=== PATIENT | female | born 1990 | race Caucasian/White ===

== ENCOUNTER 2017-02-10 05:57 | Day surgery (SDC) | payer OTHER ==
[2017-02-07 16:24] VITALS: BMI 31.0
[~2017-02-10] VITALS: Ht 162.6 cm; Wt 84.8 kg
[2017-02-10] VITALS (12 sets, daily range): BP systolic 111–136; BP diastolic 68–90; PULSE 77–90; RESP 16–27; Ht 162.6 cm; Wt 84.8 kg
[~2017-02-10 05:57] MED LIST: PNV1TABL43 PO
[2017-02-10] MEDS ORDERED: CEFAZOLIN 2 GM/50 ML (PMX) 50 ML IVPB SCH (06:00)
[2017-02-10] MEDS ORDERED: SOD CHLORIDE 0.9% 1,000 ML IV SCH (06:00)
[2017-02-10] MEDS ORDERED: BUPIVACAINE 0.25% (MPF) 30 ML INJ ONE (06:52)
[2017-02-10] MEDS ORDERED: FENTAnyl 50 MCG/ML VIAL ONE ×2 (07:49→08:43)
[2017-02-10] MEDS ORDERED: MIDAZOLAM 1 MG/ML 2 ML INJ ONE (07:49)
[2017-02-10] MEDS ORDERED: PROPOFOL 20 ML ONE (07:58)
[2017-02-10] MEDS ORDERED: LIDOCAINE 2% (SDV) 5 ML INJ ONE (07:58)
[2017-02-10] MEDS ORDERED: SUCCINYLCHOLINE CHLORIDE 100 MG/5 ML SYG IV ONE (07:58)
[2017-02-10] MEDS ORDERED: CEFAZOLIN 1 GM INJ ONE (07:58)
[2017-02-10] MEDS ORDERED: ROCURONIUM 50 MG INJ ONE (07:58)
[2017-02-10] MEDS ORDERED: DEXAMETHASONE 4 MG/ML 1 ML INJ ONE (08:00)
[2017-02-10] MEDS ORDERED: ONDANSETRON 4 MG INJ ONE (08:00)
[2017-02-10] MEDS ORDERED: METOCLOPRAMIDE 10 MG INJ ONE (08:00)
[2017-02-10] MEDS ORDERED: HYDROmorphONE 2 MG/ML SYG ONE (08:14)
[2017-02-10] MEDS ORDERED: SUGAMMADEX SODIUM 200 MG/2 ML VIAL IV ONE (08:18)
[2017-02-10] MEDS ORDERED: HYDROCODONE/APAP (5/325) TAB PO ONE (08:30)
--- NOTE | 2017-02-10 08:33 | OPR ---
Date/Time of Note Date/Time of Note DATE: 02/10/17 TIME: 08:30 Operative Report Procedure Date: Feb 10, 2017 Preoperative Diagnosis symptomatic gallstones Postoperative Diagnosis same Operation/Procedure Performed 1. laparoscopic cholecystectomy 2. therapeutic injection of subcutaneous local anesthesia Surgeon see signature line Salesforce Developer none Anesthesia Type: general Estimated Blood Loss: 0 - 10 ml's Transfusion none Specimen gallbladder Grafts/Implants none Complications none Pt Condition Post Procedure: stable Indications This is a 18-year-old female with symptomatic gallstones. She requests surgical excision of her gallbladder. Risks alternatives benefits and percent were discussed the patient. Patient expresses understanding consents to the operation. Procedure Description Patient is taken to the OR and prepped and draped in usual sterile fashion. Surgical timeout was performed. IV antibiotics were given. Infraumbilical transverse incision is made with a 15 blade. Dissection cautery was carried onto the fascia. The fascia was divided with curved Lewis scissors. 0 Vicryl U stitch was placed into the fascia. Balloon Almeida trocar is introduced pneumoperitoneum is established. Midepigastric 12 mm optical trocar was placed under direct visualization. Right upper quadrant upper flank 5 mm optical trochars were placed under direct visualization. Upon initial inspection there are some adhesions to the gallbladder. The gallbladder was grasped and retracted in a lateral and our direction. Lateral dissection was started with the cautery. This allowed careful dissection of the cystic duct and cystic artery. The cystic artery was clipped with 3 clips proximal and 1 clip distal and divided with scissors the cystic duct was divided with 3 clips proximal and distal side was divided with 35 mm echelon vascular stapler. The gallbladder was taken off the gallbladder bed. There is good hemostasis. The gallbladder was retrieved using Endo Catch bag. Ports removed under direct visualization. 0 Vicryl U stitch was tied down. Skin was closed using skin jami. Therapeutic subcutaneous local anesthesia was injected throughout the incision site. Dry dressings were applied. Ugo EATON Feb 10, 2017 08:33
[2017-02-10] MEDS ORDERED: KETOROLAC 30 MG INJ ONE (08:42)
[2017-02-10] MEDS ORDERED: BUPIVACAINE 0.25% (STERILE-PAK) 30 ML INJ INJ ONE (08:46)
[2017-02-10] MEDS ORDERED: DIPHENHYDRAMINE 50 MG INJ IV PRN (09:00)
[2017-02-10] MEDS ORDERED: PROCHLORPERAZINE 10 MG INJ IV PRN (09:00)
[2017-02-10] MEDS ORDERED: ONDANSETRON 4 MG INJ IV PRN (09:00)
[2017-02-10] MEDS ORDERED: MEPERIDINE 25 MG INJ IV PRN (09:00)
[2017-02-10] MEDS ORDERED: KETOROLAC 30 MG INJ IV PRN (09:00)
[2017-02-10] MEDS ORDERED: LABETALOL HCL 20MG INJ IV PRN (09:00)
[2017-02-10] MEDS ORDERED: OXYCODONE/ACETAMINOPHEN (5/325) TAB PO PRN ×2 (09:00)
[2017-02-10] MEDS: FENTAnyl 50 MCG/ML VIAL IV PRN ×2 (09:00→09:06)
[2017-02-10] MEDS ORDERED: hydrALAzine 20 MG INJ IV PRN (09:00)
[2017-02-10] MEDS ORDERED: TRIMETHOBENZAMIDE 100 MG/ML VIAL IM PRN (09:00)
== END 2017-02-10 10:58 | disposition home or self-care (01) ==
LOC: SUR 05:57 → SDS 05:57 → SUR 10:58
PROVIDERS: ATTEND Surgery
DX: K80.20 Calculus of gallbladder without cholecystitis without obstruction (principal); E66.9 Obesity, unspecified; Z68.32 Body mass index [BMI] 32.0-32.9, adult; G40.909 Epilepsy, unspecified, not intractable, without status epilepticus
CPT/HCPCS: 47562; 88304; J0690; J1100; J1170; J1885; J2250; J2405; J2765; J3010; J7030; Z7512; Z7610